=== PATIENT | female | born 1955 | race Caucasian/White ===

== ENCOUNTER 2016-04-17 07:34 | Outpatient (CLI) | payer OTHER ==
--- NOTE | 2016-04-17 08:11 | DIAGNOSTIC IMAGING REPORT ---
PROCEDURE: US ABDOMEN ULTRASOUND-COMPLETE INDICATION: EPIGASTRIC PAIN,FATTY FOOD INTOLERANCE TECHNIQUE: Shore scale and color Doppler sonographic images of the abdomen were obtained. COMPARISON: None. FINDINGS: Normal liver, spleen and pancreas as visualized. Normal gallbladder and CBD (4.8 mm). Negative Corral's sign. Aorta and IVC are patent. Normal hepatopetal flow. Normal kidneys. Right kidney measures 9.1 cm and left kidney 9.7 cm. IMPRESSION: 1. Normal abdominal ultrasound
--- NOTE | 2016-04-17 14:23 | DIAGNOSTIC IMAGING REPORT ---
PROCEDURE: NM HEPATOBILIARY IMAGING INDICATION: EPIGASTRIC PAIN,FATTY FOOD INTOLERANCE TECHNIQUE: 8 mCi of technetium-99m Choletec was injected intravenously and images were acquired over a one hour time interval. Subsequently, 2 mcg of cholecystokinin (Kinevac) was injected with calculation of gallbladder ejection fraction. COMPARISON: Abdominal ultrasound 04/17/2016 FINDINGS: Homogeneous radiotracer uptake throughout the liver. Gallbladder visualizes at 13 minutes. Small bowel activity is seen at 23 minutes. Ejection fraction was 65% at 15 minutes, 17% at 30 minutes and 0% at 45 minutes. IMPRESSION: 1. Patent cystic and common bile ducts 2. Bimodal ejection fraction which was normal initially with reaccumulation of activity at 60 minutes.
== END 2016-04-17 23:00 ==
LOC: US SRH 07:34
DX: R10.13 Epigastric pain (principal); K90.49 Malabsorption due to intolerance, not elsewhere classified